=== PATIENT | female | born 1960 | race Caucasian/White ===

== ENCOUNTER 2017-07-01 10:55 | Emergency (ER) | payer OTHER ==
[~2017-07-01] VITALS: Ht 152.4 cm; Wt 69.1 kg
[2017-07-01 10:59] VITALS: TEMP 97
[2017-07-01] MEDS ORDERED: PREMARIN 1.251.25 MG PO (11:06)
[2017-07-01] MEDS ORDERED: TOPROL XL100 MG PO (11:06)
[2017-07-01] MEDS ORDERED: JANUVIA 100MG100 MG PO (11:07)
[2017-07-01] MEDS ORDERED: GLUCOTROL 5M5 MG/TAB PO (11:07)
[2017-07-01] MEDS ORDERED: SINGULAIR 110 MG/TAB PO (11:08)
[2017-07-01] MEDS ORDERED: ALLEGRA 180MG180 MG PO (11:08)
[2017-07-01] MEDS ORDERED: COZAAR 50MG50 MG/TAB PO (11:09)
[2017-07-01] MEDS ORDERED: LYRICA 75MG CAP75 MG PO (11:09)
[2017-07-01] MEDS ORDERED: ASPIRIN 81M81 MG/TA2 PO (11:09)
[2017-07-01 11:21] LABS: BASO # 0.1 (0.0-0.2); EOS # 0.3 (0.0-0.7); EOS % 4.6 % (0-4.0); GRAN # 4.9 (1.4-6.5); GRAN % 70.6 % (42.2-75.2); HEMATOCRIT 43.5 % (37.0-47.0); HEMOGLOBIN 14.6 g/dl (12.5-16.0); LYMPH # 1.3 (1.2-3.4); LYMPH % 18.5 % (20.0-51.0); MEAN CELL VOLUME 90 fl (80.0-100.0); MEAN CORPUSCULAR HEMOGLOBIN 30 pg (27.0-31.0); MEAN CORPUSCULAR HGB CONC 34 g/dl (33.0-37.0); MEAN PLATELET VOLUME 10.4 fl (7.4-10.4); MONO # 0.4 (0.1-0.6); MONO % 5.2 % (1.7-9.3); PLATELET COUNT 221 K/mm3 (130-400); RED BLOOD COUNT 4.86 M/mm3 (4.10-5.30)
[2017-07-01 11:24] LABS: PROTHROMBIN TIME 11.8 SECONDS (9.7-12.8)
[2017-07-01 11:27] LABS: PARTIAL THROMBOPLASTIN TIME 30.1 SECONDS (26.0-37.0)
[2017-07-01 11:32] LABS: ADJUSTED CALCIUM 8.8 mg/dL (8.4-10.2); ALBUMIN 3.7 gm/dL (3.5-5.0); BILIRUBIN,TOTAL 0.8 mg/dL (0.0-1.0); CALCIUM 8.6 mg/dL (8.4-10.2); CREATININE, serum 0.74 mg/dL (0.52-1.25); POTASSIUM 4.1 mmol/L (3.4-5.0); TOTAL PROTEIN 7.3 gm/dL (6.4-8.2)
[2017-07-01 11:43] LABS: TROPONIN-I 0.014 ng/mL (0.000-0.034)
[2017-07-01 13:55] VITALS: BP 164/95; PULSE 64
== END 2017-07-01 13:50 | disposition short-term general hospital (02) ==
LOC: COL.ER 10:55
PROVIDERS: Family Medicine
DX: I20.0 Unstable angina (principal); I10 Essential (primary) hypertension; E11.9 Type 2 diabetes mellitus without complications; Z90.49 Acquired absence of other specified parts of digestive tract; Z90.710 Acquired absence of both cervix and uterus; Z79.84 Long term (current) use of oral hypoglycemic drugs; Z79.82 Long term (current) use of aspirin
CPT/HCPCS: J1644; J2270